=== PATIENT | female | born 1980 | race African-American/Black ===

== ENCOUNTER 2023-06-25 15:29 | Observation (INO) | payer BC ==
[2023-06-25 16:10] LABS: #Basophils 0.1 10x3/uL (0.0-0.2); #Monocytes 0.8 10x3/uL (0.0-1.1); #Neutrophils 8.6 10x3/uL (1.5-8.4); %Basophils 0.5 % (0.0-2.0); %Eosinophils 0.3 % (0.0-6.0); %Lymphocytes 19.5 % (18.0-47.0); %Monocytes 6.6 % (0.0-10.0); %Neutrophils 72.8 % (40.0-75.0); Hemoglobin 12.3 g/dL (12.0-15.5); Mean Corpuscular HGB CONC 31.5 g/dL (32.0-36.0); Mean Corpuscular Hemoglobin 23.5 pg (27.0-33.0); Mean Corpuscular Volume 74.6 fl (81.6-98.3); Mean Platelet Volume 10.6 fl (7.4-10.4); Platelet Count 308 10x3/uL (150-450); Red Blood Cell (RBC) Count 5.23 10x6/uL (3.90-5.03); White Blood Cell (WBC) Count 11.9 10x3/uL (3.5-10.5)
[2023-06-25 16:19] LABS: BHCG - Serum Negative (NEGATIVE); Pregs Control Background? CLEAR/WHITE (CLR/WHITE); Pregs Control Bar Appear? YES (CONTROL BAR)
[2023-06-25 16:26] LABS: ALT (SGPT) 16 U/L (8-55); AST (SGOT) 19 U/L (5-34); Albumin 4.6 g/dL (3.5-5.0); Alkaline Phosphatase 61 U/L (40-110); Anion Gap 17 mmol/L (10-20); BUN (Urea Nitrogen) 12 mg/dL (7.0-18.7); Bilirubin, Total 0.4 mg/dL (0.2-1.2); Calc. Creatinine Clearance 0 mL/min (70-130); Calcium 9.6 mg/dL (7.8-10.44); Carbon Dioxide 22 mmol/L (22-29); Chloride 100 mmol/L (98-107); Estimated GFR 78; Globulin 3.7 g/dL (2.4-3.5); Glucose 120 mg/dL (70-105); Magnesium 1.7 mg/dL (1.6-2.6); Potassium 2.9 mmol/L (3.5-5.1); Protein, Total 8.3 g/dL (6.0-8.3); Sodium 136 mmol/L (136-145)
[2023-06-25 16:29] LABS: Troponin I Less than 0.010 ng/mL (< 0.028)
[2023-06-25 17:10] LABS: Large Platelets SLIGHT (None Seen); Microcytosis SLIGHT = 6-15 cells (100X) (0-5/hpf); Platelet Adequacy Comment Appears Adequate; Polychromasia SLIGHT = 2-3 cells (100X) (0-2/hpf)
[2023-06-25] MEDS ORDERED: Potassium Chloride 20 MEQ TAB ONE (17:21)
[2023-06-25] MEDS ORDERED: Potassium Chloride 20 MEQ/100 ML PREMIX BAG ONE (17:22)
[2023-06-25] MEDS ORDERED: Magnesium Sulfate/D5W 1 GM/100 ML BAG ONE (17:22)
[2023-06-25 18:48] LABS: Bilirubin Neg (Negative); Blood, Urine Negative (Negative); Clarity Clear (Clear); Glucose, Urine (Dipstick) Normal (Negative); Ketone, Urine 5 mg/dL (Negative); Leukocyte Negative (Negative); Nitrite Negative (Negative); Protein, Urine (Dipstick) Negative (Neg-Trace); Specific Gravity, Urine 1.015 (1.005-1.030); Urobilinogen Normal mg/dL (Less than 2)
[2023-06-25 18:56] LABS: Bacteria/HPF Rare-Few HPF (None Seen); CAUTI Indications for Culture Pelvic or flank pain; Mucous/LPF Rare LPF (<2+); RBC/HPF None Seen HPF (0-3); Squamous Epithelial 0-3 HPF (0-3); Urine Culture Reflex No No; WBC/HPF None Seen HPF (0-3)
[2023-06-25] MEDS ORDERED: Potassium Chloride 20 MEQ TAB PO SCH (19:45)
[2023-06-25 20:41] LABS: Troponin I Less than 0.010 ng/mL (< 0.028)
[2023-06-25 22:15] VITALS: BMI 35.4
[2023-06-25] MEDS: Lactated Ringer's 1,000 ML IV SCH (22:23)
[2023-06-25 22:55] LABS: Troponin I Less than 0.010 ng/mL (< 0.028)
[2023-06-26] MEDS: Lactated Ringer's 1,000 ML IV SCH ×2 (05:00→07:39)
[2023-06-26 05:42] LABS: #Basophils 0.1 10x3/uL (0.0-0.2); #Neutrophils 7.5 10x3/uL (1.5-8.4); %Basophils 0.4 % (0.0-2.0); %Eosinophils 0.1 % (0.0-6.0); %Lymphocytes 24.4 % (18.0-47.0); %Monocytes 9.1 % (0.0-10.0); %Neutrophils 65.7 % (40.0-75.0); Hematocrit 34.8 % (34.9-44.5); Mean Corpuscular HGB CONC 31.6 g/dL (32.0-36.0); Mean Corpuscular Hemoglobin 23.6 pg (27.0-33.0); Mean Corpuscular Volume 74.7 fl (81.6-98.3); Mean Platelet Volume 10.8 fl (7.4-10.4); Platelet Count 286 10x3/uL (150-450); RBC Distribution Width 15.1 % (11.5-14.5); Red Blood Cell (RBC) Count 4.66 10x6/uL (3.90-5.03); White Blood Cell (WBC) Count 11.3 10x3/uL (3.5-10.5)
[2023-06-26 05:49] LABS: Anion Gap 14 mmol/L (10-20); BUN (Urea Nitrogen) 8 mg/dL (7.0-18.7); Calc. Creatinine Clearance 153 mL/min (70-130); Carbon Dioxide 21 mmol/L (22-29); Chloride 106 mmol/L (98-107); Estimated GFR 99; Glucose 105 mg/dL (70-105); Potassium 3.3 mmol/L (3.5-5.1); Sodium 138 mmol/L (136-145)
[2023-06-26 06:12] LABS: Cholesterol 250 mg/dl (< 200 Desired); HDL Cholesterol 42 mg/dL (>60 Neg Risk); LDL Cholesterol, Calculated 181 mg/dL; Triglycerides 133 mg/dL (Less than 150)
[2023-06-26 13:08] VITALS: TEMP 98.4
[2023-06-26 16:53] VITALS: BP 111/66
== END 2023-06-26 17:30 | disposition home or self-care (01) ==
LOC: CSHERS 15:29 → CSHTELE 20:53 → INTOOBSV 20:53
PROVIDERS: ADMIT Family Medicine; ATTEND Family Medicine
DX: E87.6 Hypokalemia (principal); R55 Syncope and collapse; R94.31 Abnormal electrocardiogram [ECG] [EKG]; I10 Essential (primary) hypertension; E03.9 Hypothyroidism, unspecified; E78.5 Hyperlipidemia, unspecified; Z90.710 Acquired absence of both cervix and uterus; Z79.890 Hormone replacement therapy; Z79.899 Other long term (current) drug therapy; Z87.19 Personal history of other diseases of the digestive system
CPT/HCPCS: 36415; 36416; 70450; 71045; 80048; 80053; 80061; 81001; 83605; 83735; 84443; 84484; 84703; 85025; 93005; 93010; 93306; 96372; G0378; J1650; J3475; J3480; J7120